=== PATIENT | female | born 1995 | race Caucasian/White ===

== ENCOUNTER 2023-08-02 17:14 | Inpatient (IN) | payer OTHER ==
[2023-08-02 17:34] VITALS: BMI 20.3
[2023-08-02] MEDS ORDERED: SODIUM CHLORIDE 0.9% 500 ML INFUS.BAG IV ONE (18:24)
[2023-08-02] MEDS ORDERED: ONDANSETRON 4 MG/2 ML VIAL IVPUSH ONE (18:40)
[2023-08-02] MEDS ORDERED: ONDANSETRON 4 MG/2 ML VIAL ONE (18:51)
[2023-08-02] MEDS ORDERED: ACETAMINOPHEN 1000 MG/100 ML BAG IVPB ONE (19:38)
[2023-08-02] MEDS ORDERED: ACETAMINOPHEN INJECTION 100 ML IVPB ONE (19:41)
[2023-08-02] MEDS ORDERED: CEFTRIAXONE 1 GM/50 ML BAG ONE (19:41)
[2023-08-02] MEDS ORDERED: ACETAMINOPHEN 325 MG TABLET (FP) PO PRN (23:06)
[2023-08-02] MEDS: DEXTROSE 5%-LACTATED RINGERS 1,000 ML IV SCH (23:37)
[2023-08-02] MEDS: CEFAZOLIN SODIUM 2 GM in DEXTROSE 5%-WATER 100 ML IVPB SCH (23:40)
[2023-08-03] MEDS: ACETAMINOPHEN 1000 MG/100 ML BAG IVPB PRN ×4 (02:26→20:30)
[2023-08-03] MEDS: CEFAZOLIN SODIUM 2 GM in DEXTROSE 5%-WATER 100 ML IVPB SCH ×3 (07:33→22:51)
[2023-08-03 08:38] LABS: BASO % 0.2 % (0-2.0); EOS % 0.1 % (0-4.5); HEMATOCRIT 28.5 % (32.4-45.2); LYMPH % 10.7 % (8-40); MCH 31.5 pg (25.7-33.7); MCHC 35.1 g/dl (32.0-36.0); MEAN CELL VOLUME 89.7 fl (80-96); MEAN PLT VOLUME 9.2 fl (7.5-11.1); MONO % 5.5 % (3.8-10.2); NEUT % 83.5 % (42.8-82.8); PLATELET COUNT 181 10^3/uL (134-434); RBC 3.17 M/mm3 (3.60-5.2); WHITE BLOOD COUNT 9.9 K/mm3 (4.0-10.0)
[2023-08-03] MEDS: DEXTROSE 5%-LACTATED RINGERS 1,000 ML IV SCH (16:38)
[2023-08-04] MEDS: DEXTROSE 5%-LACTATED RINGERS 1,000 ML IV SCH ×3 (02:01→21:35)
[2023-08-04] MEDS: ACETAMINOPHEN 1000 MG/100 ML BAG IVPB PRN ×3 (04:10→17:40)
[2023-08-04] MEDS: CEFAZOLIN SODIUM 2 GM in DEXTROSE 5%-WATER 100 ML IVPB SCH ×3 (08:11→23:21)
[2023-08-05] MEDS: ACETAMINOPHEN 1000 MG/100 ML BAG IVPB PRN ×3 (00:34→16:38)
[2023-08-05] MEDS: CEFAZOLIN SODIUM 2 GM in DEXTROSE 5%-WATER 100 ML IVPB SCH ×3 (06:33→22:55)
[2023-08-05] MEDS: DEXTROSE 5%-LACTATED RINGERS 1,000 ML IV SCH ×2 (06:36→15:49)
[2023-08-05] MEDS ORDERED: MEPERIDINE HCL 50 MG/ML VIAL IVPUSH PRN (08:20)
[2023-08-05] MEDS: MEPERIDINE HCL 25 MG/ML VIAL IVPUSH PRN ×2 (12:52→20:12)
[2023-08-05] MEDS ORDERED: TAMSULOSIN HCL 0.4 MG CAP PO SCH (15:00)
[2023-08-05] MEDS ORDERED: MEPERIDINE HCL 25 MG/ML VIAL ONE (20:07)
[2023-08-06] MEDS: MEPERIDINE HCL 25 MG/ML VIAL IVPUSH PRN ×4 (00:38→20:32)
[2023-08-06] MEDS: ACETAMINOPHEN 1000 MG/100 ML BAG IVPB PRN ×3 (04:45→18:07)
[2023-08-06] MEDS ORDERED: CEFAZOLIN SODIUM 2 GM VIAL ONE (08:22)
[2023-08-06] MEDS: CEFAZOLIN SODIUM 2 GM in DEXTROSE 5%-WATER 100 ML IVPB SCH ×3 (08:34→23:05)
[2023-08-06] MEDS: TAMSULOSIN HCL 0.4 MG CAP PO SCH (08:45)
[2023-08-06] MEDS ORDERED: SENNOSIDES/DOCUSATE COMBO (SENNA PLUS) TABLET (UD) PO PRN (10:16)
[2023-08-06] MEDS ORDERED: DOCUSATE SODIUM 100 MG CAPSULE (FP) PO PRN (10:17)
[2023-08-06] MEDS: DEXTROSE 5%-LACTATED RINGERS 1,000 ML IV SCH ×2 (11:14→20:33)
[2023-08-07] MEDS: ACETAMINOPHEN 1000 MG/100 ML BAG IVPB PRN ×4 (00:27→19:34)
[2023-08-07] MEDS: MEPERIDINE HCL 25 MG/ML VIAL IVPUSH PRN ×3 (02:43→15:30)
[2023-08-07] MEDS ORDERED: CEFAZOLIN SODIUM 2 GM VIAL ONE (06:20)
[2023-08-07] MEDS: CEFAZOLIN SODIUM 2 GM in DEXTROSE 5%-WATER 100 ML IVPB SCH ×3 (06:25→23:09)
[2023-08-07] MEDS: DEXTROSE 5%-LACTATED RINGERS 1,000 ML IV SCH (06:25)
[2023-08-07] MEDS: TAMSULOSIN HCL 0.4 MG CAP PO SCH (09:17)
[2023-08-07] MEDS ORDERED: BISACODYL 10 MG SUPP.RECT RC PRN (10:16)
[2023-08-08] MEDS ORDERED: MEPERIDINE HCL 25 MG/ML VIAL ONE (00:41)
[2023-08-08] MEDS: MEPERIDINE HCL 25 MG/ML VIAL IVPUSH PRN ×2 (00:58→08:05)
[2023-08-08] MEDS: DEXTROSE 5%-LACTATED RINGERS 1,000 ML IV SCH ×2 (01:32→10:31)
[2023-08-08] MEDS: ACETAMINOPHEN 1000 MG/100 ML BAG IVPB PRN ×3 (04:31→15:56)
[2023-08-08] MEDS: CEFAZOLIN SODIUM 2 GM in DEXTROSE 5%-WATER 100 ML IVPB SCH (06:16)
[2023-08-08] MEDS: TAMSULOSIN HCL 0.4 MG CAP PO SCH (08:49)
[2023-08-08 09:59] VITALS: RESP 17
[2023-08-08 18:13] VITALS: BP 106/66; PULSE 79; TEMP 98.3
== END 2023-08-08 18:10 | disposition short-term general hospital (02) | DRG 566 ==
LOC: JER 17:14 → JERBED 19:29 → J3W 23:15
PROVIDERS: ADMIT Obstetrics & Gynecology; ATTEND Obstetrics & Gynecology
DX: O99.892 Other specified diseases and conditions complicating childbirth (principal); O23.12 Infections of bladder in pregnancy, second trimester; N13.39 Other hydronephrosis; Z3A.20 20 weeks gestation of pregnancy
CPT/HCPCS: 36415; 59025; 74177-TC; 76775-TC; 80053; 80076; 81003; 85025; 87086; 87635; 99285-25